=== PATIENT | female | born 1965 | race Caucasian/White ===

== ENCOUNTER → 2023-02-13 14:03 | Outpatient (CLI) | payer OTHER, SELFPAY ==
--- NOTE | ~2023-02-13 | XR_ITS ---
XR knee LT 3V 02/13/2023 14:31 Indication: Left knee pain Procedure: 3 views left knee Comparison: No prior studies for comparison. Findings: There is anatomic alignment. No fracture, subluxation or dislocation. There is mild patello femoral compartment osteoarthritis. Small joint effusion. No foreign bodies. Impression: 1: Mild patellofemoral compartment osteoarthritis. 2: Small joint effusion. Reviewed, dictated and finalized at location A. Impression: 1: Mild patellofemoral compartment osteoarthritis. 2: Small joint effusion.
== END ==
PROVIDERS: PCP Family Medicine; Visit Provider Family Medicine
DX: M25.562 Pain in left knee (principal); M25.462 Effusion, left knee; M17.12 Unilateral primary osteoarthritis, left knee
CPT/HCPCS: 73562

== ENCOUNTER 2024-03-04 09:36 | Outpatient (CLI) | payer OTHER, SELFPAY ==
[2024-03-04 10:04] LABS: Hematocrit 43.1 % (37.0-47.0); Hemoglobin 14.3 g/dL (12.0-15.0); Mean Corpuscular HGB Conc 33.2 g/dl (32-36); Mean Corpuscular Hemoglobin 31.2 pg (26-34); Mean Corpuscular Volume 93.9 fl (80-100); Mean Platelet Volume 10.6 fl (7.4-10.4); Platelet Count Result 290 k/mm3 (150-375); Red Blood Count 4.59 M/mm3 (4.2-5.4); White Blood Count 5.4 K/mm3 (4.5-10.0)
[2024-03-04 10:18] LABS: Alanine Aminotransferase 21 U/L (6-35); Albumin Level 4.3 g/dL (3.5-5.1); Alkaline Phosphatase 55 U/L (38-126); Anion Gap 8 mmol/L (4-12); Aspartate Amino Transferase 24 U/L (14-36); Bilirubin,Total 0.4 mg/dL (0.2-1.3); Blood Urea Nitrogen 16 mg/dL (7-17); Calcium 9.1 mg/dL (8.4-10.2); Carbon Dioxide 26 mmol/L (22-30); Chloride 105 mmol/L (98-107); Cholesterol 277 mg/dL (0-200); Estimated Glomerular Filt Rate > 60; Glucose 90 mg/dL (65-110); HDL Direct 85 mg/dL; Potassium 4.3 mmol/L (3.4-5.0); Sodium 139 mmol/L (137-145); Triglycerides 128 mg/dL (<150)
[2024-03-04 10:29] LABS: LDL Cholesterol Direct 135 mg/dL
[2024-03-04 10:49] LABS: Vitamin D 25 Hydroxy 44.5 ng/mL
== END 2024-03-04 09:37 | disposition home or self-care (01) ==
LOC: ANHLAB 09:39
PROVIDERS: PCP Family Medicine; Visit Provider Family Medicine
DX: E34.9 Endocrine disorder, unspecified (principal); R53.83 Other fatigue; Z76.89 Persons encountering health services in other specified circumstances
CPT/HCPCS: 36415; 80053; 80061; 82306; 82607; 83735; 84443; 85027

== ENCOUNTER 2025-02-03 11:32 | Outpatient (CLI) | payer OTHER, SELFPAY ==
--- OUTSIDE RECORDS SUMMARY | 2025-02-03 12:03 | XMS_ITS ---
Author Organization [facility] Address [address] [place], [place] [id number] Care Team Providers Care Marketing Development Manager Name Role Phone CARROLL LILIA Unavailable [phone] GilbertToni Unavailable Unavailable REASON FOR VISIT Right foot pain Encounters Encounter Location Date Provider Diagnosis [facility] [address] [address] [place], [place] [id number] 11/16/2024 LILIA HODGES Plan Of Treatment Next Appt Details Provider Name:LILIA HODGES, 11:00:00 AM, [address], [place], [place], [id number], Progress Notes * PETE ARELLANOOB:1965 ( 60 yo F)Acc No.[id number]:11/16/2024 Patient: YVONNE TYLER Provider: Beatris Hodges DPM :1965 A ge:59 Y S ex:Female Date:11/16/2024 Address:[address] [place], [place] Subjective: * Chief Complaints: * 1 . Right foot pain. * Medical History: Objective: * Vitals: Assessment: Plan: * Treatment: * Billing Information: * Visit Code: * Procedure Codes: * Electronic signature of LILIA HODGES DPM on 02/03/2025 at 12:03 PM CDT Sign off status: Pending * Provider: Beatris Hodges DPM Date: 0 11/16/2024 Generated for Mi hoffman/Santana/Eric on: 0 02/03/2025 12:03 PM CDT
--- OUTSIDE RECORDS SUMMARY | 2025-02-03 12:03 | XMS_ITS | Clinical Summary ---
Author Organization [facility] Address [facility] [place] [address] Care Team Providers Care Production Estimator Name Role Phone Chaparro Holman DO Primary Care Provider [phone] Allergies No known active allergies Medications estradiol 0.1 MG/GM vaginal cream 05/08/2020 Active vitamin D3, cholecalciferol , 5000 UNITS capsule Take 1 capsule by mouth daily. Active Multiple Vitamin (MULTIVITAMIN ADULT OR) Take 1 tablet by mouth daily. Active valACYclovir (VALTREX) 500 MG tabletIndicatio ns:Cold sore Take 1 tablet (500 mg total) by mouth 2 (two) times daily. 14 tablet 1 01/25/2023 Active Active Problems Problem Noted Date Diagnosed Date Urticaria 10/08/2017 Arthralgia of multiple sites 12/28/2015 Medial epicondylitis 08/12/2013 Resolved Problems Problem Noted Date Diagnosed Date Resolved Date Encounter for preventive health examination 04/21/2013 04/01/2020 Immunizations Immunization Administration Dates Next Due Fluarix (IIV4) 06/17/2020 PFIZER COVID-19 (ORIGINAL FO RMULATION, PURPLE CAP) mRNA, LNP-S, PF, 30 MCG/0.3 ML DOSE 10/21/2020,09/29/2020 Shingrix 07/03/2021,03/07/2021 Family History Medical History Relation Comments Heart Disease Father Cancer Maternal Grandmother Esophageal Leukemia Paternal Grandfather Breast Cancer Paternal Grandmother Relation Status Comments Father Maternal Grandmother Paternal Grandfather Paternal Grandmother Social History Tobacco Use Types Packs/Day Years Used Date Smoking Tobacco: Never Smokeless Tobacco: Never Alcohol Use Standard Drinks/Week Comments Yes 0 (1 standard drink = 0.6 oz pur e alcohol) social PHQ-2 Answer Date Recorded Patient Health Questionnaire-2 Score 2 12/14/2022 Comments No Sex and Gender Information Value Date Recorded Sex Assigned at Not on file Legal Sex Female 7:03 PM CDT Gender Identity Not on file Sexual Orientation Not on file 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 Not on file Not on file Not on file Last Filed Vital Signs Vital Sign Reading Time Taken Comments Blood Pressure 110/68 12/14/2022 2:18 PM CDT Pulse 59 12/14/2022 2:18 PM CDT Temperature 36.2 C (97.1 F) 06/08/2022 1:30 PM SERVICE DELIVERY MANAGEMENT CONSULTANT Respiratory Rate 16 06/08/2022 1:30 PM SERVICE DELIVERY MANAGEMENT CONSULTANT Oxygen Saturation 99% 06/08/2022 1:30 PM SERVICE DELIVERY MANAGEMENT CONSULTANT Inhaled Oxygen Concentration - - Weight 68 kg (150 lb) 12/14/2022 2:18 PM CDT Height 161.3 cm (5' 3.5) 12/14/2022 2:18 PM CDT Body Mass Index 26.15 12/14/2022 2:18 PM CDT Plan of Treatment Health Maintenance Due Date Last Done Comments Cervical Cancer Screening Pap Smear (Age 30 to 64) Every 3 Years 1965 Hepatitis C 01/25/1984 DTaP, Tdap and Td Vaccines (1 - Tdap) 1985 Hepatitis B Vaccines (1 of 3 - 19+ 3-dose series) 1985 Cervical Cancer Screening Pap with HPV Testing (Age 30 to 64) Every 5 Years 01/25/1996 Cervical Cancer Screening with HPV 01/25/1996 Pneumococcal Vaccine: 50+ Years (1 of 1 - PCV) 01/25/2016 Colorectal Cancer Screening Colonoscopy (10 Years) 05/22/2020 05/22/2010 Annual Physical 12/15/2023 12/14/2022, 05/0 10/2021, 10/31/2020, Additional history exists COVID-19 Vaccine ( season) 2024 05/21/2022, 11/28/2021, 06/14/2021, Additional history exists Mammogram Screening 10/24/2024 10/24/2022, 08/09/2021, 06/29/2019 Colorectal Cancer Screening FIT-DNA (3 Years) Discontinued 11/15/2020 Zoster Vaccines Completed 07/03/2021, 03/07/2021 Meningococcal B Vaccine Aged Out No l onger eligible based on patient's age to complete this topic Meningococcal Vaccine Aged Out No alfredo mayco eligible based on patient's age to complete this topic RSV Immunizations Under 20 Months Aged Out No longer eligible based on patient's age to complete this topic Medical Devices Implanted Type Area Interactive Graphic Designer Device Identifier Shelf Expiration Date Model / Serial / Lot Asnis Screw 3.0 X 16 Implanted:Qty: 1 on 06/08/2022 by Armando Benitez DPM at [facility] Left: Foot 0 06/08/2023 [id number] / / 0 Procedures Procedure Name Priority Date/Time Associated Diagnosis Comments MAMMOGRAM GENERIC (SCAN ORDER) Routine 10/24/2022 COLOGUARD (AMBULATORY) Routine 11/15/2020 Colon cancer screening COLONOSCOPY Routine 05/22/2010 12:00 AM CDT from Last 3 Months or Most Recently Relevant to Health Maintenance Results * MAMMOGRAM (10/24/2022) Anatomical Region Laterality Modality Other Chaparro Holman DO SCANNING Final Resul t * Cologuard (11/15/2020) Stool specimen (specimen) Chaparro Holman DO AMBULATORY COLOGUARD (RTF) Final Result * Colonoscopy (05/22/2010 12:00 AM CDT) 05/22/2010 05/22/2010 Narrative TOUCHWORKS TO EPIC CONVERSION - 05/22/2010 12:00 AM CDT Documented hx of procedure Procedure Note Paulette Mckeon MD - 10/09/2018 Documented hx of procedure Paulette Allen Md, MD GI PROCEDURE ORDERABLES Final Result TOUCHWORKS TO EPIC CONVERSION from Last 3 Months or Most Recently Relevant to Health Maintenance Insurance [facility] Care Teams Production Estimator Relationship Specialty Start Date End Date Chaparro Holman DO PCP - General FAMILY PRACTICE 12/25/18
--- OUTSIDE RECORDS SUMMARY | 2025-02-03 12:03 | XMS_ITS | Referral Summary ---
Author Organization [facility] [address] [facility] Address [address] [place] [address] Care Team Providers Care Color Control Supervisor Name Role Phone Shantanu Back MD Primary Care Provider Erica Quintana MAIL CARRIER TECHNICIAN Unavailable [phone] Dipika Dennis MD Unavailable [phone] Didi Ha NP Unavailable [phone] Arlet Falk NP Unavailable [phone] Encounters Date Type Department Care Team Description 12/11/2024 Orders Only [facility] [address] [place] [address] Scanning, Provider 12/09/2024 12:00 PM CDT Office Visit [facility] [address] [address] Erica Quintana NP Routine gynecological examination (Primary Dx); Postmenopausal atrophic vaginitis from Last 3 Months Allergies No known active allergies Medications valACYclovir (VALTREX) 500 mg tablet Take 1 tablet (500 mg total) by mouth 2 (two) times a day 01/25/2023 Active multivitamin-ir on-folic acid 18-400 mg-mcg tablet Take 1 tablet by mouth daily Active terbinafine (LamiSIL) 250 mg tablet TAKE 1 TABLET BY MOUTH DAILY FOR 42 DAYS 11/24/2024 Active omega-3 fatty acids-fish oil 300-1,000 mg capsule Take 2 capsules (2 g total) by mouth daily Active estradioL (ESTRACE) 0.01 % (0.1 mg/gram) vaginal cream Insert 1 g into the vagina 2 (two) times a week 42.5 g 3 12/10/2024 Active Active Problems No known active problems Immunizations Immunization Administration Dates Next Due Influenza, Quadrivalent, Spl it, Preservative Free, Intramuscular 06/17/2020 ZOSTER Recombinant 07/03/2021,03/07/2021 Social History Tobacco Use Types Packs/Day Years Used Date Smoking Tobacco: Never Smokeless Tobacco: Never Tobacco Cessation:Counseling Given: Not Answered Alcohol Use Standard Drinks/Week Comments No 0 (1 standard drink = 0.6 oz pur e alcohol) AUDIT-C Answer Date Recorded Q1: How often do you have a drink containing alc ohol? Monthly or less 10/29/2023 Q2: How many drinks containi ng alcohol do you have on a typical day when you are drinking? 1 or 2 10/29/2023 Q3: How often do you have si x or more drinks on one occasion? Less than monthly 10/29/2023 Comments No Sex and Gender Information Value Date Recorded Sex Assigned at Not on file Legal Sex Female 1:05 PM [employer]DLAND [employer] Gender Identity Not on file Sexual Orientation Not on file Last Filed Vital Signs Vital Sign Reading Time Taken Comments Blood Pressure 126/74 12/09/2024 11:50 AM CDT Pulse - - Temperature - - Respiratory Rate - - Oxygen Saturation - - Inhaled Oxygen Concentration - - Weight 64.4 kg (142 lb) 12/09/2024 11:50 AM CDT Height 160.7 cm (5' 3.25) 12/09/2024 11:50 AM C DT Body Mass Index 24.96 12/09/2024 11:50 AM CDT Plan of Treatment Not on file Procedures Procedure Name Priority Date/Time Associated Diagnosis Comments SCAN - RADIOLOGY/IMAGING 12/11/2024 7:26 AM CDT PAP AND HPV, REFLEX TO HPV GENOTYPES Routine 12/04/2023 10:57 AM CDT Screening for malignant neoplasm of the cervix from Last 3 Months or Most Recently Relevant to Health Maintenance Results * SCAN - RADIOLOGY/IMAGING (12/11/2024 7:26 AM CDT) Anatomical Region Laterality Modality Other us Provider Scanning Final Result * Pap and HPV, reflex to HPV Genotypes (12/04/2023 10:57 AM CDT) Clinical indication Comment [facility] - 01 Comment:NEGATIVE FOR INTRAEP ITHELIAL LESION OR MALIGNANCY. Specimen adequacy: Comment [facility] - 01 Comment:Satisfactory for phuong luation. No endocervical component is identified. Clinician provided ICD10 Comment [facility] - 01 Comment:Z12.4 Performed by Comment [facility] - 01 Comment:Nori Lindo, Cyto technologist (ASCP) . . [facility] - 01 Note: Comment [facility] - 01 Comment: The Pap smear is a screening test designed to aid in the detection of premalignant and malignant conditions of the uterine cervix. It is not a diagnostic procedure and should not be used as the sole means of detecting cervical cancer. Both false-positive and false-negative reports do occur. Test methodology Comment [facility] - 01 Comment: This liquid based ThinPrep(R) pap test was screened with the use of an image guided system. HPV Aptima Negative Negative [facility] 02 Comment: This nucleic acid amplification test detects fourteen high-risk HPV types (16,18,31,33,35,39,45,51,52,56,58,59,66,68) without differentiation. HPV Genotype Reflex Comment [facility] - 01 Comment:Criteria not met, HP V Genotype not performed. Thin prep 12/04/2023 10:5 7 AM CDT 12/04/2023 Narrative [facility] - 12/09/2023 11:10 AM CDT Performed at: - [facility] [id number] Frit Mixer And Burner: Yanni Dinero MD, Phone: [phone] Performed at: - [address] [id number] F[employer] Mixer And Burner: Yanni Dinero MD, Phone: [phone] Specimen Comment: Source.............Cervix;Endocervix Specimen Comment: No. of containers..01 ThinPrep Vial Erica Quintana MAIL CARRIER TECHNICIAN LAB CYTOLOGY ORDERABLES Final Result [facility] - 01 [facility] 02 from Last 3 Months or Most Recently Relevant to Health Maintenance Insurance [facility] CHOICE [facility] HMO/PPO Address: [address] [address] Care Teams Color Control Supervisor Relationship Specialty Start Date End Date Shantanu Back MD [address] [place] [address] PCP - General 05/01/10 Erica Quintana NP [address] [place] [address] Nurse Practitioner Obstetrics and Gynecology 09/30/23 Dipika Dennis MD [address] [place] [address] Wide Piece Goods Inspector Obstetrics and Gynecology 12/04/23 Didi Ha NP [address] [facility] [place] [id number] Nurse Practitioner Obstetrics and Gynecology 11/09/24 Arlet Falk NP [address] [place] [address] Nurse Practitioner Obstetrics and Gynecology 11/09/24
--- OUTSIDE RECORDS SUMMARY | 2025-02-03 12:03 | XMS_ITS ---
Author Organization [facility] Address [address] [place], [place] [id number] Care Team Providers Care Farmworker [employer] Name Role Phone LILIA HODGES Unavailable [phone] Toni Hunt Unavailable Unavailable Allergies Allergen (clinical drug ingredient) Drug/Non Drug Allergy documented on EMR Reaction Allergy Type Onset Date Status No Known Drug Allergy Unknown Drug Allergy Active REASON FOR VISIT The patient is tolerating the oral lamisil well with no issues. The oral steroid helped with the joint pain Medications Medication SIG (Take, Route, Frequency, Duration) Notes Start Date End Date Status Terbinafine HCl 250 MG 1 tablet Orally Once a day; Duration: 42 days 5 01/06/20 25 Active oxycodone hydrochloride 5 MG Oral Capsule ORAL oxycodone hydrochloride 5 MG Oral CapsuleOriginal Medicationoxycodone hydrochloride 5 MG Oral Capsule *Reorder from [facility] for eRx and Interaction Alerts* 6 Active Medrol 4 MG as directed Orally one pack 5 Active methylPREDNISolone 4 MG as directed Orally 5 Active Vital Signs Height 64.0 in 12/21/2024 Weight 134.019 lbs 12/21/2024 BMI 23 kg/m2 12/21/2024 Height-cm 162.56 cm 12/21/2024 Weight-kg 60.79 kg 12/21/2024 Encounters Encounter Location Date Provider Diagnosis [facility] [address] [place], [place] [id number] 12/21/2024 LILIA SNOOK Lesion of plantar nerve, 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 Discussed conservative care consisting of padding, wider shoes, anti-inflammatories , and orthotics. Discussed surgical treatment options and answered all questions about the intra-operative and post-operative treatment course. Casiano's neuroma, also known as an interdigital neuroma, is a swelling of the interdigital nerve typically causing sharp, burning pain in the intermetatarsal space, most often between the 3rd and 4th distal metatarsals, that may be exacerbated by constricting shoe wear. Numbness in the affected area may also be noted with increasing activity and patients may also complain of a foreign body sensation in their shoe while walking. The disorder is seen more commonly in women in mid-life and although the disorder does not show a preference of which foot, concurrent bilateral affliction is uncommon. Physical exam may reveal a positive Tori's click, in which a clicking sensation is revealed while palpating the interdigital space and simultaneously laterally squeezing the metatarsals together. Diagnosis is clinical and an ultrasound may be used to rule out other diagnoses. Conservative therapy is first line treatment and is aimed at relieving the pressure around the affected areas and providing pain relief. Surgical therapy is reserved for those who fail conservative therapy. 12/21/2024 Metatarsalgia, right foot (ICD-10 - M77.41) Metatarsalgia: I discussed anti-inflammatory treatment options and various means of immobilization with the patient. I educated the patient on icing and stretching, supportive shoegear, and the use of orthotic devices and bracing. 12/21/2024 Tinea unguium (ICD-10 - B35.1) FUNGAL TOENAILS: Discussed various treatment options for fungal toenails including debridement, topical antifungals, oral antifungals, toenail avulsion, or toenail matrixectomy. Lamisil Repeat: Repeat Liver Function Tests after 6 weeks of oral Lamisil and if they are within normal limits, will renew final dose for a total of 12 weeks of therapy. Plan Of Treatment Treatment Notes Assessment Notes Lesion of plantar nerve, rig ht lower limb Neuroma: Discussed various treatments with the patient regarding neuroma. Discussed conservative care consisting of padding, wider shoes, anti-inflammatories, and orthotics. Discussed surgical treatment options and answered all questions about the intra-operative and post-operative treatment course. Casiano's neuroma, also known as an interdigital neuroma, is a swelling of the interdigital nerve typically causing sharp, burning pain in the intermetatarsal space, most often between the 3rd and 4th distal metatarsals, that may be exacerbated by constricting shoe wear. Numbness in the affected area may also be noted with increasing activity and patients may also complain of a foreign body sensation in their shoe while walking. The disorder is seen more commonly in women in mid-life and although the disorder does not show a preference of which foot, concurrent bilateral affliction is uncommon. Physical exam may reveal a positive Tori's click, in which a clicking sensation is revealed while palpating the interdigital space and simultaneously laterally squeezing the metatarsals together. Diagnosis is clinical and an ultrasound may be used to rule out other diagnoses. Conservative therapy is first line treatment and is aimed at relieving the pressure around the affected areas and providing pain relief. Surgical therapy is reserved for those who fail conservative therapy. Metatarsalgia, right foot Metatarsalgia: I discussed anti-inflammatory treatment options and various means of immobilization with the patient. I educated the patient on icing and stretching, supportive shoegear, and the use of orthotic devices and bracing. Tinea unguium FUNGAL TOENAILS: Discussed various treatment options for fungal toenails including debridement, topical antifungals, oral antifungals, toenail avulsion, or toenail matrixectomy. Lamisil Repeat: Repeat Liver Function Tests after 6 weeks of oral Lamisil and if they are within normal limits, will renew final dose for a total of 12 weeks of therapy. Pending Test Test Name Order Date Liver Function Test (LFT) 12/21/2024 Next Appt Details Follow Up: 4 Months, Reason: Fungal toenail check after 12 weeks of oral lamisil therapy Provider Name:LILIA HODGES, 11:00:00 AM, [address], [facility], [place], [place], [id number], Progress Notes * PETE ARELLANOOB:1965 ( 60 yo F)Acc No.[id number]:12/21/2024 Patient: YVONNE TYLER Provider: Beatris Hodges DPM :1965 A ge:59 Y S ex:Female Date:12/21/2024 Address:[address] [place] [address] , [id number] Subjective: * Chief Complaints: * 1 . The patient is tolerating the oral lamisil well with no issues. The oral steroid helped with the joint pain. * HPI: H PI: Follow Up Visit P kayla presents for follow-up visit to review lab work and fungal nail check. Patient states it is too soon to see any improvement, but she has not had any issues taking medication. JESSI VALENTINE. * ROS: G eneral / Constitutional: Patient denies c hills, fever, weakness, night sweats. M usculoskeletal: Patient denies c hildhood foot problems, weakness. P atient complains of b union surgery, hardware. P eripheral Vascular: Patient denies u lceration of feet, cold extremities. ? S kin: Patient denies u lcerations, discoloration. ? N eurologic: Patient denies b alance difficulty, confusion, difficulty speaking, dizziness. * Medical History: M edical History Verified. * Family History: F ather: PRN - Father: . M other: PRN - Mother: . S ister: SIB - Sister: . * Social History: M igrated Social History: M igrated Social History: History of tobacco use : , Smoking Status : Never smoked. * Medications: T aking oxycodone hydrochloride 5 MG Oral Capsule ORAL , Notes to Pharmacist: oxycodone hydrochloride 5 MG Oral CapsuleOriginal Medicationoxycodone hydrochloride 5 MG Oral Capsule *Reorder from [employer] for eRx and Interaction Alerts*, Taking methylPREDNISolone 4 MG Tablet Therapy Pack as directed Orally , Taking Medrol 4 MG Tablet Therapy Pack as directed Orally , Notes to Pharmacist: one pack, Taking Terbinafine HCl 250 MG Tablet 1 tablet Orally Once a day , stop date 01/05/2025, Medication List reviewed and reconciled with the patient * Allergies: N o Known Drug Allergy. Objective: * Vitals: W t:134.019lbs, Wt-k.79 kg, Ht: 64.0 in, Ht-cm: 162.56 cm, BMI:23Index, Body Surface Area: 1.66. * Examination: C onstitutional: Constitutional T he patient is awake, alert, well developed, well groomed and well nourished. D ermatologic: Skin findings: S kin is warm, dry, supple with no breaks in the skin. Nail pathology: N ails 1-5 bilateral are elongated, thick, discolored, and dystrophic with subungual debris. They are painful to palpation. ? V ascular: Dorsalis pedis pulse: 2 /4, bilateral. Posterior tibial pulse: 2 /4, bilateral. Capillary refill: l ess than 3 seconds. Edema: N o edema, bilateral. N eurologic: Gross sensation G ross sensation is intact to light touch.? M usculoskeletal: Muscle Strength M uscle strength is 5/5 in regards to dorsiflexion, plantarflexion, inversion, and eversion in bilateral lower extremities. Pain on palpation m inimal pain on palpation to the 2nd interspace of the right foot, pain with [id number] compressions of the metatarsal heads. ? Assessment: * Assessment: 1. L esion of plantar nerve, right lower limb - G57.61 (Primary) 2 . M etatarsalgia, right foot - M77.41 3 . T inea unguium - B35.1 Plan: * Treatment: 2. M etatarsalgia, right foot Notes: Metatarsalgia: I discussed anti-inflammatory treatment options and various means of immobilization with the patient. I educated the patient on icing and stretching, supportive shoegear, and the use of orthotic devices and bracing. 3. T inea unguium L AB: Liver Function Test (LFT) Notes: FUNGAL TOENAILS: Discussed various treatment options for fungal toenails including debridement, topical antifungals, oral antifungals, toenail avulsion, or toenail matrixectomy. Lamisil Repeat: Repeat Liver Function Tests after 6 weeks of oral Lamisil and if they are within normal limits, will renew final dose for a total of 12 weeks of therapy. * Immunizations: Immunization record has been reviewed and updated. * Follow Up: 4 Months (Reason: Fungal toenail check after 12 weeks of oral lamisil therapy) * Billing Information: * Visit Code: 92706 Office Visit, Est Pt., Level 3. * Procedure Codes: * Electronic signature of LILIA HODGES DPM on 02/03/2025 at 12:02 PM CDT Sign off status: Pending * Provider: Beatris Hodges DPM Date: 12/21/2024 Generated for Mi hoffman/Santana/Eric on: 02/03/2025 12:02 PM CDT History and Physical Notes * HPI (History of Present Illness) Category Sub-Category Detail Notes Category Not es HPI Follow Up Visit Patient presents for follow-up visit to review lab work and fungal nail check. Patient states it is too soon to see any improvement, but she has not had any issues taking medication. JESSI LB Examination Category Sub-Category Detail Notes Category Not es Dermatologic Skin findings: Skin is warm, dr y, supple with no breaks in the skin Nail pathology: Nails 1-5 bilateral are elongated, thick, discolored, and dystrophic with subungual debris. They are painful to palpation Neurologic Gross sensation Gross sensation is intact to light touch Vascular Dorsalis pedis pulse: 2/4, bilateral Edema: No edema, bilateral Capillary refill: less than 3 seconds Posterior tibial pulse: 2/4, bilateral Musculoskeletal Muscle Strength Muscle strength is 5/5 in regards to dorsiflexion, plantarflexion, inversion, and eversion in bilateral lower extremities Pain on palpation minimal pain on palp ation to the 2nd interspace of the right foot, pain with [id number] compressions of the metatarsal heads Constitutional Constitutional The patient is a wake, alert, well developed, well groomed and well nourished
--- OUTSIDE RECORDS SUMMARY | 2025-02-03 12:03 | XMS_ITS | Patient Health Record ---
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 [employer] Name Role Phone LILIA HODGES Unavailable [phone] GilbertToni Unavailable Unavailable Allergies Allergen (clinical drug ingredient) Drug/Non Drug Allergy documented on EMR Reaction Allergy Type Onset Date Status No Known Drug Allergy Unknown Drug Allergy Active Reason For Referral No Information Medications Medication SIG (Take, Route, Frequency, Duration) Notes Start Date End Date Status Terbinafine HCl 250 MG 1 tablet Orally Once a day; Duration: 42 days 5 02/09/20 25 Active oxycodone hydrochloride 5 MG Oral Capsule ORAL oxycodone hydrochloride 5 MG Oral CapsuleOriginal Medicationoxycodone hydrochloride 5 MG Oral Capsule *Reorder from [employer] for eRx and Interaction Alerts* 6 Active Medrol 4 MG as directed Orally one pack 5 Active methylPREDNISolone 4 MG as directed Orally 5 Active Vital Signs Height-cm 162.56 cm 12/21/2024 Weight-kg 60.79 kg 12/21/2024 Height 64.0 in 12/21/2024 Weight 134.019 lbs 12/21/2024 BMI 23 kg/m2 12/21/2024 Encounters Encounter Location Date Provider Diagnosis [facility] [place] [address] [place], [place] [id number] 12/21/2024 LILIACURTIS HODGES Lesion of plantar nerve, 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 ; Metatarsalgia, right foot M77.41 and Tinea unguium B35.1 [facility] [place] [address] [place] [id number] 04/06/2024 LILIA SNOOK Lesion of plantar nerve, 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 ; Metatarsalgia, left foot M77.42 and Left foot pain M79.672 [facility] [place] [address] [place] [id number] 05/04/2024 LILIA SNOOK Lesion of plantar nerve, 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 ; Plantar fasciitis M72.2 ; Metatarsalgia, left foot M77.42 and Left foot pain M79.672 [facility] [place] [address] [place] [id number] 11/23/2024 LILIA SNOOK Lesion of plantar nerve, 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 ; Metatarsalgia, right foot M77.41 and Tinea unguium B35.1 [facility] [place] [address] [id number] 04/07/2024 LILIA SNOOK [facility] [place] [address] [id number] 11/23/2024 LILIA SNOOK [facility] [place] [address] [id number] 11/24/2024 LILIA SNOOK [facility] [place] [address] [id number] 11/24/2024 LILIA SNOOK [facility] [place] [address] [id number] 12/28/2024 LILIA SNOOK Assessments Encounter Date Diagnosis (ICD Code) Assessment Notes Treatment Notes Treatment Clinical Notes Section Notes 04/06/2024 Lesion of plantar nerve, 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 Discussed conservative care consisting of padding, wider shoes, anti-inflammatories , and orthotics. Discussed surgical treatment options and answered all questions about the intra-operative and post-operative treatment course. Shoe Recommendation: Advised patient on appropriate shoe gear for protection, healing and good foot health. Voltaren Gel: Recommend that the patient obtain over the counter topical Voltaren Gel 1%. I educated the patient on its use. 04/06/2024 Metatarsalgia, left foot (ICD-10 - M77.42) Metatarsalgia: I discussed anti-inflammatory treatment options and various means of immobilization with the patient. I educated the patient on icing and stretching, supportive shoegear, and the use of orthotic devices and bracing. Orthotic Scan: The patient was scanned for functional orthotic devices. This was done in the subtalar joint neutral position in a non-weightbearing fashion. The patient will follow-up in 3-4 weeks time to be dispensed and fitted with the devices. 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 Discussed conservative care consisting of padding, wider shoes, anti-inflammatories , and orthotics. Discussed surgical treatment options and answered all questions about the intra-operative and post-operative treatment course. Shoe Recommendation: Advised patient on appropriate shoe gear for protection, healing and good foot health. Orthotic Dispense: The orthotic devices were dispensed and fitted. It was noted that the orthotic conformed well to the patient's foot in the subtalar joint neutral position. The patient was educated on the device's use, as well as the gradual break-in period for the device. 05/04/2024 Plantar fasciitis (ICD-10 - M72.2) 11/23/2024 Lesion of plantar nerve, right lower limb [...] reserved for those who fail conservative therapy. 11/23/2024 Metatarsalgia, right foot (ICD-10 - M77.41) Metatarsalgia: I discussed anti-inflammatory treatment options and various means of immobilization with the patient. I educated the patient on icing and stretching, supportive shoegear, and the use of orthotic devices and bracing. 12/21/2024 Lesion of plantar nerve, right lower [...] the use of orthotic devices and bracing. 11/23/2024 Tinea unguium (ICD-10 - B35.1) FUNGAL TOENAILS: Discussed various treatment options for fungal toenails including debridement, topical antifungals, oral antifungals, toenail avulsion, or toenail matrixectomy. Lamisil Initial Treatment: Order Liver Function tests prior to course of oral Lamisil. If the LFTS are within normal limits, order 6 weeks of Lamisil. Liver Function Test will be repeated after 6 weeks prior to final dose for a total of 12 weeks of therapy. 12/21/2024 Tinea unguium (ICD-10 - B35.1) FUNGAL TOENAILS: Discussed various treatment options for fungal toenails including debridement, topical antifungals, oral antifungals, toenail avulsion, or toenail matrixectomy. Lamisil Repeat: Repeat Liver Function Tests after 6 weeks of oral Lamisil and if they are within normal limits, will renew final dose for a total of 12 weeks of therapy. 05/04/2024 Metatarsalgia, left foot (ICD-10 - M77.42) Metatarsalgia: I discussed anti-inflammatory treatment options and various means of immobilization with the patient. I educated the patient on icing and stretching, supportive shoegear, and the use of orthotic devices and bracing. Orthotic Scan x2: The patient was scanned for functional orthotic devices. This was done in the subtalar joint neutral position in a non-weightbearing fashion. The patient will follow-up in 3-4 weeks time to be dispensed and fitted with the devices. 04/06/2024 Left foot pain (ICD-10 - M79.672) 05/04/2024 Left foot pain (ICD-10 - M79.672) Plan Of Treatment Pending Test Test Name Order Date Liver Function Test (LFT) 12/21/2024 Next Appt Details Provider Name:LILIA HODGES, 11:00:00 AM, [address], [facility], [place], [place], [id number], Insurance Providers Payer Name Payer Address Payer Phone Subscriber Number Group Number Insured Name Patient Relationship to Insured Coverage Start Date Coverage End Date [facility] [address] [address] [place] [id number] ARELLANO Spouse - patient is the spouse of the insured
--- OUTSIDE RECORDS SUMMARY | 2025-02-03 12:03 | XMS_ITS | Clinical Summary ---
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 Role Phone Shantanu Back MD Primary Care Provider [phone] Erica Quintana NP Unavailable [phone] Dipika Dennis MD Unavailable [phone] Didi Ha NP Unavailable [phone] Arlet Falk NP Unavailable [phone] Allergies No known active allergies Medications valACYclovir [...] Active Active Problems No known active problems Encounters Date Type Department Care Team Description 12/11/2024 Orders Only [facility] [address] [place] [address] Scanning, Provider 12/09/2024 12:00 PM CDT Office Visit [facility] [address] [place] [id number] Erica Quintana, GEOFF Routine gynecological examination (Primary Dx); Postmenopausal atrophic vaginitis from Last 3 Months Immunizations Immunization Administration Dates Next Due Influenza, Quadrivalent, Spl it, Preservative Free, Intramuscular 06/17/2020 ZOSTER Recombinant 07/03/2021,03/07/2021 Surgical History Surgery Date Site/Laterality Comments OTHER SURGICAL HISTORY L upper lung surgery: blisters [facility] OTHER SURGICAL HISTORY blisters in lung: partial lobectomy TONSILLECTOMY HEMORRHOID SURGERY 07/22/2011 - 07/21/2012 laser BUNIONECTOMY 07/22/2015 - 07/21/2016 Medical History Medical History Date Comments H/O cold sores Family History Medical History Relation Name Comments Other Father rectal bleeding ; No Known Problems Mother Breast cancer Other 1 Family history of Cancer -breast; Other Other 2 No family histo ry of Cancer, colon; Other Other 3 No family histo ry of Colon polyps; Other Other 4 No family histo ry of Crohn's disease; Other Other 5 No family histo ry of Ulcerative colitis; Breast cancer Paternal Grandmother Heart disease Sister Kidney cancer Sister Relation Name Status Comments Father Mother Other 1 Other 2 Other 3 Other 4 Other 5 Paternal Grandmother Sister Social History Tobacco Use Types Packs/Day Years [...] on file 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 Gender Identity Not on file Sexual Orientation Not on file Obstetrics History Para Term AB IAB SAB Ectopic Multiple Livin g Live Births 0 0 0 0 0 0 0 0 0 0 0 Last Filed Vital Signs Vital Sign Reading [...] 12/09/2024 11:50 AM CDT Plan of Treatment Health Maintenance Due Date Last Done Comments Colon Cancer Screening-Colonoscopy 1966 Depression Screening 1966 Hepatitis C Screening 1966 DTaP/Tdap/Td Vaccine (1 - Tdap) 1977 Hepatitis B Screening 01/25/1984 Covid-19 Vaccine ( season) 2024 07/03/2023, 05/21/2022, 11/28/2021, Additional history exists Influenza Vaccine (Season Ended) 2025 06/17/2020 Breast Cancer Screening-Mammogram 12/09/2025 12/09/2024 Regular Well Visit/Exam 18-64 12/09/2025 12/09/2024, 12/04/2023 Cervical Cancer Screening 12/03/2028 12/04/2023 Zoster Vaccine Completed 07/03/2021, 03/07/2021 Pneumococcal vaccine <65 Aged Out No longer eligible based on patient's age to complete this topic Procedures Procedure Name Priority Date/Time Associated Diagnosis [...] do occur. Test methodology Comment [facility] - Comment: This liquid based ThinPrep(R) pap test was screened with the use of an image guided system. HPV Aptima Negative Negative [facility] Comment: This nucleic acid amplification test detects fourteen high-risk HPV types (16,18,31,33,35,39,45,51,52,56,58,59,66,68) without differentiation. HPV Genotype Reflex Comment [facility] - Comment:Criteria not met, HP V Genotype not performed. Thin prep 12/04/2023 10:5 7 AM CDT 12/04/2023 Narrative [facility] - 12/09/2023 11:10 AM CDT Performed at: - [facility] [id number] Project Manager Process Development: Yanni Dinero MD, Phone: [phone] Performed at: - [facility] [id number] Project Manager Process Development: Yanni Dinero MD, Phone: [phone] Specimen Comment: Source.............Cervix;Endocervix Specimen Comment: No. of containers..01 ThinPrep Vial Erica Quintana NP LAB CYTOLOGY ORDERABLES Final [facility] 02 from Last 3 Months or Most Recently Relevant to Health Maintenance Insurance [facility] CHOICE [facility] HMO/PPO Address: 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
[2025-02-03 12:15] LABS: Add Urine Microscopic? NO; Appearance Urine Clear (Clear); Glucose Urine UA Negative (Negative); Leukocyte Esterase Ur Negative LEU/UL (Negative); Nitrate Urine Negative (Negative); Specific Grav Ur 1.006 (1.001-1.035)
[2025-02-03 12:16] LABS: Hematocrit 40.3 % (37.0-47.0); Hemoglobin 13.5 g/dL (12.0-15.0); Immature Granulocyte Percent A 0.2 % (0-0.5); Lymphocytes Absolute Auto 1.84 K/mm3 (0.9-3.2); Mean Corpuscular HGB Conc 33.5 g/dl (32-36); Mean Corpuscular Hemoglobin 30.7 pg (26-34); Mean Corpuscular Volume 91.6 fl (80-100); Nucleated Red Blood Cells Absolute Auto 0.000 K/mm3 (0.0-0.012); Nucleated Red Blood Cells Perc 0.0 % (0.0-0.2); Platelet Count Result 307 k/mm3 (150-375); Red Blood Count 4.40 M/mm3 (4.2-5.4); White Blood Count 5.8 K/mm3 (4.5-10.0)
[2025-02-03 12:37] LABS: Alanine Aminotransferase 20 U/L (6-35); Albumin Level 4.3 g/dL (3.5-5.1); Alkaline Phosphatase 47 U/L (38-126); Anion Gap 5 mmol/L (4-12); Aspartate Amino Transferase 26 U/L (14-36); Bilirubin,Total 0.5 mg/dL (0.2-1.3); Blood Urea Nitrogen 12 mg/dL (7-17); Calcium 9.0 mg/dL (8.4-10.2); Carbon Dioxide 27 mmol/L (22-30); Chloride 105 mmol/L (98-107); Cholesterol 209 mg/dL (0-200); Estimated Glomerular Filt Rate > 60; Glucose 92 mg/dL (65-110); HDL Direct 68 mg/dL; Potassium 3.9 mmol/L (3.4-5.0); Sodium 137 mmol/L (137-145); Total Protein 6.9 g/dL (6.3-8.2); Triglycerides 65 mg/dL (<150)
== END 2025-02-03 11:33 | disposition home or self-care (01) ==
PROVIDERS: PCP Family Medicine; Visit Provider Family Medicine
DX: E34.9 Endocrine disorder, unspecified (principal); M54.50 Low back pain, unspecified; R39.9 Unspecified symptoms and signs involving the genitourinary system; R53.83 Other fatigue
CPT/HCPCS: 36415; 80053; 80061; 81003; 82172; 85025; 87086